=== PATIENT | male | born 1950 | race Caucasian/White ===

== ENCOUNTER 2023-01-10 09:01 | Inpatient (IN) ==
[2023-01-10] MEDS ORDERED: ONDANSETRON 4 MG/2 ML VIAL IV PRN (09:48)
[2023-01-10] MEDS ORDERED: PROMETHAZINE 25 MG/ML VIAL IV PRN (09:53)
[2023-01-10] MEDS ORDERED: PEG 3350/NA SULF,BICARB,CL/KCL 4,000 ML ORAL.SOL PO ONE (09:57)
[2023-01-10] MEDS: 0.9 % SODIUM CHLORIDE 1,000 ML IV SCH (12:55)
[2023-01-10] MEDS: PIPERACILLIN SODIUM/TAZOBACTAM 3.375 GM in DEXTROSE 5% IN WATER 50 ML IV SCH ×2 (12:55→17:21)
[2023-01-10] MEDS: 0.9 % SODIUM CHLORIDE 10 ML SYRINGE IV SCH ×2 (13:33→20:40)
[2023-01-10] MEDS: PANTOPRAZOLE 40 MG VIAL IV SCH (17:09)
[2023-01-10] MEDS ORDERED: ERYTHROMYCIN OPHTH OINT 3.5GM TUBE OU PRN (17:18)
[2023-01-10] MEDS ORDERED: SUMAtriptan SUCCINATE 50 MG TABLET PO PRN (17:18)
[2023-01-10] MEDS ORDERED: metFORMIN 500 MG TABLET PO SCH (17:30)
[2023-01-10] MEDS: metFORMIN 500 MG TABLET PO SCH (17:58)
[2023-01-10] MEDS: POTASSIUM CHLORIDE 20 MEQ TABLET PO SCH (17:59)
[2023-01-10] MEDS: TAMSULOSIN 0.4 MG CAPSULE PO SCH (20:35)
[2023-01-10] MEDS: HYDROcodone/APAP 10/325MG TABLET PO PRN (20:35)
[2023-01-10] MEDS: busPIRone 5 MG TABLET PO SCH (20:35)
[2023-01-10] MEDS: BACLOFEN 10 MG TABLET PO SCH (20:35)
[2023-01-10] MEDS: TRIAMTERENE/HYDROCHLOROTHIAZID 1 CAP CAPSULE PO SCH (20:40)
[2023-01-10] MEDS ORDERED: busPIRone 5 MG TABLET PO SCH (21:00)
[2023-01-11] MEDS: BACLOFEN 10 MG TABLET PO SCH ×6 (00:04→20:04)
[2023-01-11] MEDS: HYDROcodone/APAP 10/325MG TABLET PO PRN ×5 (00:04→20:05)
[2023-01-11] MEDS: PIPERACILLIN SODIUM/TAZOBACTAM 3.375 GM in DEXTROSE 5% IN WATER 50 ML IV SCH ×4 (00:20→17:02)
[2023-01-11] MEDS: 0.9 % SODIUM CHLORIDE 1,000 ML IV SCH ×3 (01:07→11:49)
[2023-01-11] MEDS: 0.9 % SODIUM CHLORIDE 10 ML SYRINGE IV SCH ×3 (04:21→20:04)
[2023-01-11] MEDS: HYDROCODONE/APAP 7.5/325MG TABLET PO PRN (04:28)
[2023-01-11] MEDS: PANTOPRAZOLE 40 MG VIAL IV SCH ×2 (07:15→17:02)
[2023-01-11] MEDS: metFORMIN 500 MG TABLET PO SCH ×2 (07:16→17:03)
[2023-01-11] MEDS: LEVOTHYROXINE 100 MCG VIAL IV SCH (07:16)
[2023-01-11] MEDS: POTASSIUM CHLORIDE 20 MEQ TABLET PO SCH ×2 (07:16→17:04)
[2023-01-11] MEDS: busPIRone 5 MG TABLET PO SCH ×2 (08:11→20:04)
[2023-01-11] MEDS: ENOXAPARIN 40 MG/0.4 ML SYRINGE SQ SCH (08:12)
[2023-01-11] MEDS: TAMSULOSIN 0.4 MG CAPSULE PO SCH ×2 (08:12→20:03)
[2023-01-11] MEDS: GABAPENTIN 300 MG CAPSULE PO SCH (08:12)
[2023-01-11] MEDS: TRIAMTERENE/HYDROCHLOROTHIAZID 1 CAP CAPSULE PO SCH ×2 (08:12→20:03)
[2023-01-11] MEDS ORDERED: PEG 3350/NA SULF,BICARB,CL/KCL 4,000 ML ORAL.SOL PO ONE (09:00)
[2023-01-11 12:55] LABS: Basophils # (Auto) 0.06 K/mcL (0.00-0.30); Basophils % (Auto) 0.7 % (0.0-2.0); Eosinophils # (Auto) 0.56 K/mcL (0.00-0.70); Hematocrit 32.1 % (40.1-51.0); Hemoglobin 9.9 g/dL (13.7-17.5); Lymphocytes # (Auto) 1.14 K/mcL (1.50-4.80); Lymphocytes % (Auto) 14.2 % (15.5-49.0); Mean Cell Volume 82.5 fL (80.0-100.0); Mean Corpuscular HGB Conc 30.8 g/dL (31.0-36.0); Monocytes # (Auto) 0.77 K/mcL (0.10-0.90); Monocytes % (Auto) 9.6 % (1.0-12.0); Neutrophils % (Auto) 68.1 % (38.0-78.0); Platelet Count 396 K/mcL (140-440); RBC 3.89 M/mcL (4.63-6.08)
[2023-01-11] MEDS: MAGNESIUM HYDROXIDE 30 ML ORAL.SUSP PO SCH ×4 (13:43→20:30)
[2023-01-11 16:38] LABS: ALT/SGPT 11 U/L (<40); AST/SGOT 11 U/L (<40); Albumin 2.8 gm/dL (3.2-5.2); Albumin/Globulin Ratio 0.8 (1.0-2.3); Alkaline Phosphatase 103 U/L (39-117); Bilirubin,Direct < 0.2 mg/dL (0-0.3); Bilirubin,Total 0.5 mg/dL (0.1-1.0); Blood Urea Nitrogen 10 mg/dL (8-23); Calcium 8.7 mg/dL (8.6-10.4); Carbon Dioxide 27 mmol/L (22-30); Chloride 97 mmol/L (96-108); Globulin 3.4 gm/dL (2.2-3.7); Glomerular Filtration Rate 99; Glucose 92 mg/dL (70-105); Lactate Dehydrogenase 103 U/L (135-225); Phosphorous 3.5 mg/dL (2.5-4.5); Triglycerides 113 mg/dL (<150); Uric Acid 3.5 mg/dL (2.5-8.0)
[2023-01-12] MEDS: HYDROcodone/APAP 10/325MG TABLET PO PRN ×5 (00:22→23:26)
[2023-01-12] MEDS: BACLOFEN 10 MG TABLET PO SCH ×7 (00:23→23:26)
[2023-01-12] MEDS: PIPERACILLIN SODIUM/TAZOBACTAM 3.375 GM in DEXTROSE 5% IN WATER 50 ML IV SCH ×5 (00:37→23:26)
[2023-01-12] MEDS: 0.9 % SODIUM CHLORIDE 1,000 ML IV SCH ×2 (01:34→21:47)
[2023-01-12] MEDS: HYDROCODONE/APAP 7.5/325MG TABLET PO PRN (05:00)
[2023-01-12] MEDS: 0.9 % SODIUM CHLORIDE 10 ML SYRINGE IV SCH ×3 (05:01→20:05)
[2023-01-12] MEDS ORDERED: FLEETS ADULT ENEMA PR ONE (05:13)
[2023-01-12] MEDS: PANTOPRAZOLE 40 MG VIAL IV SCH ×3 (07:14→17:28)
[2023-01-12] MEDS: LEVOTHYROXINE 100 MCG VIAL IV SCH ×2 (07:14→09:07)
[2023-01-12] MEDS ORDERED: KETAMINE 50 MG/ML Syringe IV ONE (08:04)
[2023-01-12] MEDS ORDERED: fentaNYL 100 MCG/2 ML VIAL IV ONE (08:04)
[2023-01-12] MEDS ORDERED: SUGAMMADEX SODIUM 200 MG/2 ML VIAL IV ONE (08:05)
[2023-01-12] MEDS ORDERED: ROCURONIUM 10 MG/ML ML IV ONE (08:05)
[2023-01-12] MEDS ORDERED: MAGNESIUM SULFATE 0 GM/0 ML BAG IV ONE (08:05)
[2023-01-12] MEDS ORDERED: PROPOFOL 200 MG/20 ML VIAL IV ONE (08:05)
[2023-01-12] MEDS ORDERED: LIDOCAINE 2% PF 5 ML VIAL ONE (08:05)
[2023-01-12] MEDS ORDERED: ONDANSETRON 4 MG/2 ML VIAL ONE (08:05)
[2023-01-12] MEDS ORDERED: DEXAMETHASONE 10 MG/ML VIAL ONE (08:05)
[2023-01-12] MEDS ORDERED: SCOPOLAMINE 1 PATCH PATCH TOPICAL PRN (09:00)
[2023-01-12] MEDS ORDERED: IPRATROPIUM/ALBUTEROL 3 ML AMPUL.NEB NEB PRN (09:00)
[2023-01-12] MEDS: POTASSIUM CHLORIDE 20 MEQ TABLET PO SCH ×2 (09:07→17:28)
[2023-01-12] MEDS: metFORMIN 500 MG TABLET PO SCH ×2 (09:07→17:28)
[2023-01-12] MEDS: busPIRone 5 MG TABLET PO SCH ×2 (11:21→20:05)
[2023-01-12] MEDS: ENOXAPARIN 40 MG/0.4 ML SYRINGE SQ SCH (11:21)
[2023-01-12] MEDS: TAMSULOSIN 0.4 MG CAPSULE PO SCH ×2 (11:21→20:05)
[2023-01-12] MEDS: TRIAMTERENE/HYDROCHLOROTHIAZID 1 CAP CAPSULE PO SCH ×2 (11:22→20:05)
[2023-01-12] MEDS: GABAPENTIN 300 MG CAPSULE PO SCH (11:22)
[2023-01-13] MEDS: 0.9 % SODIUM CHLORIDE 10 ML SYRINGE IV SCH ×3 (04:10→21:27)
[2023-01-13] MEDS: HYDROcodone/APAP 10/325MG TABLET PO PRN ×5 (04:28→21:23)
[2023-01-13] MEDS: BACLOFEN 10 MG TABLET PO SCH ×5 (04:28→21:23)
[2023-01-13] MEDS: PIPERACILLIN SODIUM/TAZOBACTAM 3.375 GM in DEXTROSE 5% IN WATER 50 ML IV SCH ×3 (05:53→17:34)
[2023-01-13] MEDS: 0.9 % SODIUM CHLORIDE 1,000 ML IV SCH ×2 (05:54→21:21)
[2023-01-13] MEDS: PANTOPRAZOLE 40 MG VIAL IV SCH ×2 (07:48→17:35)
[2023-01-13] MEDS: LEVOTHYROXINE 100 MCG VIAL IV SCH (07:48)
[2023-01-13] MEDS: metFORMIN 500 MG TABLET PO SCH ×2 (07:49→17:35)
[2023-01-13] MEDS: POTASSIUM CHLORIDE 20 MEQ TABLET PO SCH ×2 (07:49→17:35)
[2023-01-13] MEDS: busPIRone 5 MG TABLET PO SCH ×2 (08:53→21:23)
[2023-01-13] MEDS: ENOXAPARIN 40 MG/0.4 ML SYRINGE SQ SCH (08:53)
[2023-01-13] MEDS: GABAPENTIN 300 MG CAPSULE PO SCH (08:53)
[2023-01-13] MEDS: TRIAMTERENE/HYDROCHLOROTHIAZID 1 CAP CAPSULE PO SCH ×2 (08:53→21:23)
[2023-01-13] MEDS: TAMSULOSIN 0.4 MG CAPSULE PO SCH ×2 (08:53→21:23)
[2023-01-14] MEDS: PIPERACILLIN SODIUM/TAZOBACTAM 3.375 GM in DEXTROSE 5% IN WATER 50 ML IV SCH ×5 (00:55→23:48)
[2023-01-14] MEDS: BACLOFEN 10 MG TABLET PO SCH ×7 (00:55→22:23)
[2023-01-14] MEDS: HYDROCODONE/APAP 7.5/325MG TABLET PO PRN (03:44)
[2023-01-14] MEDS: 0.9 % SODIUM CHLORIDE 1,000 ML IV SCH ×4 (04:03→21:20)
[2023-01-14] MEDS: 0.9 % SODIUM CHLORIDE 10 ML SYRINGE IV SCH ×3 (04:30→21:30)
[2023-01-14] MEDS ORDERED: PROPOFOL 200 MG/20 ML VIAL IV ONE ×2 (07:20→08:13)
[2023-01-14] MEDS ORDERED: LIDOCAINE 2% PF 5 ML VIAL ONE (07:20)
[2023-01-14] MEDS ORDERED: ROCURONIUM 10 MG/ML ML IV ONE ×2 (07:21→09:29)
[2023-01-14] MEDS ORDERED: fentaNYL 100 MCG/2 ML VIAL IV ONE (07:38)
[2023-01-14] MEDS ORDERED: PHENYLEPHRINE 10 MG/ML VIAL ONE (08:12)
[2023-01-14] MEDS ORDERED: IPRATROPIUM/ALBUTEROL 3 ML AMPUL.NEB NEB PRN (08:16)
[2023-01-14] MEDS ORDERED: NALOXONE HCL 0.4 MG/ML VIAL IV PRN (09:51)
[2023-01-14] MEDS ORDERED: ePHEDrine 50 MG/ML AMPUL IV PRN (09:51)
[2023-01-14] MEDS ORDERED: ACETAMINOPHEN 1,000 MG/100 ML BAG IV ONE (09:51)
[2023-01-14] MEDS ORDERED: LACTATED RINGERS 250 ML IV PRN (09:51)
[2023-01-14] MEDS ORDERED: fentaNYL 100 MCG/2 ML VIAL IV PRN (09:51)
[2023-01-14] MEDS ORDERED: ONDANSETRON 4 MG/2 ML VIAL IV PRN (09:51)
[2023-01-14] MEDS ORDERED: ATROPINE SULFATE 0.4 MG/ML VIAL IV PRN (09:51)
[2023-01-14] MEDS ORDERED: SUGAMMADEX SODIUM 200 MG/2 ML VIAL IV ONE (09:58)
[2023-01-14] MEDS: PANTOPRAZOLE 40 MG VIAL IV SCH ×2 (14:01→17:44)
[2023-01-14] MEDS: LEVOTHYROXINE 100 MCG VIAL IV SCH (14:01)
[2023-01-14] MEDS: POTASSIUM CHLORIDE 20 MEQ TABLET PO SCH ×2 (14:02→17:45)
[2023-01-14] MEDS: metFORMIN 500 MG TABLET PO SCH ×2 (14:02→17:46)
[2023-01-14] MEDS: TAMSULOSIN 0.4 MG CAPSULE PO SCH ×2 (14:03→21:24)
[2023-01-14] MEDS: busPIRone 5 MG TABLET PO SCH ×2 (14:03→21:24)
[2023-01-14] MEDS: TRIAMTERENE/HYDROCHLOROTHIAZID 1 CAP CAPSULE PO SCH ×2 (14:04→21:24)
[2023-01-14] MEDS: GABAPENTIN 300 MG CAPSULE PO SCH (14:04)
[2023-01-14] MEDS: METOCLOPRAMIDE 10 MG/2 ML VIAL IV SCH ×3 (14:14→23:48)
[2023-01-14] MEDS: ENOXAPARIN 40 MG/0.4 ML SYRINGE SQ SCH (14:14)
[2023-01-14] MEDS: HYDROmorphone 1 MG/ML SYRINGE IV PRN (16:01)
[2023-01-14] MEDS: HYDROcodone/APAP 10/325MG TABLET PO PRN ×3 (17:45→22:23)
[2023-01-15] MEDS: BACLOFEN 10 MG TABLET PO SCH ×6 (03:42→23:58)
[2023-01-15] MEDS: HYDROCODONE/APAP 7.5/325MG TABLET PO PRN (03:43)
[2023-01-15] MEDS: HYDROmorphone 1 MG/ML SYRINGE IV PRN ×2 (04:50→10:21)
[2023-01-15] MEDS: METOCLOPRAMIDE 10 MG/2 ML VIAL IV SCH ×3 (05:50→18:34)
[2023-01-15] MEDS: PIPERACILLIN SODIUM/TAZOBACTAM 3.375 GM in DEXTROSE 5% IN WATER 50 ML IV SCH ×3 (05:50→17:22)
[2023-01-15] MEDS: 0.9 % SODIUM CHLORIDE 10 ML SYRINGE IV SCH ×4 (05:50→20:25)
[2023-01-15] MEDS: PANTOPRAZOLE 40 MG VIAL IV SCH ×2 (08:00→17:22)
[2023-01-15] MEDS: HYDROcodone/APAP 10/325MG TABLET PO PRN ×4 (08:00→20:24)
[2023-01-15] MEDS: LEVOTHYROXINE 100 MCG VIAL IV SCH (08:00)
[2023-01-15] MEDS: metFORMIN 500 MG TABLET PO SCH ×2 (09:32→17:22)
[2023-01-15] MEDS: POTASSIUM CHLORIDE 20 MEQ TABLET PO SCH ×2 (09:32→17:22)
[2023-01-15] MEDS: busPIRone 5 MG TABLET PO SCH ×2 (09:33→20:25)
[2023-01-15] MEDS: TAMSULOSIN 0.4 MG CAPSULE PO SCH ×2 (09:33→20:25)
[2023-01-15] MEDS: GABAPENTIN 300 MG CAPSULE PO SCH (09:33)
[2023-01-15] MEDS: ENOXAPARIN 40 MG/0.4 ML SYRINGE SQ SCH (09:34)
[2023-01-15] MEDS: TRIAMTERENE/HYDROCHLOROTHIAZID 1 CAP CAPSULE PO SCH ×2 (09:34→20:26)
[2023-01-15] MEDS: 0.9 % SODIUM CHLORIDE 1,000 ML IV SCH (11:39)
[2023-01-16] MEDS: PIPERACILLIN SODIUM/TAZOBACTAM 3.375 GM in DEXTROSE 5% IN WATER 50 ML IV SCH ×5 (00:03→23:50)
[2023-01-16] MEDS: METOCLOPRAMIDE 10 MG/2 ML VIAL IV SCH ×5 (00:03→23:50)
[2023-01-16] MEDS: 0.9 % SODIUM CHLORIDE 1,000 ML IV SCH ×3 (02:29→18:52)
[2023-01-16] MEDS: BACLOFEN 10 MG TABLET PO SCH ×6 (03:33→23:00)
[2023-01-16] MEDS: HYDROCODONE/APAP 7.5/325MG TABLET PO PRN (03:33)
[2023-01-16] MEDS: HYDROmorphone 1 MG/ML SYRINGE IV PRN (04:22)
[2023-01-16] MEDS: 0.9 % SODIUM CHLORIDE 10 ML SYRINGE IV SCH ×3 (06:26→23:00)
[2023-01-16] MEDS: LEVOTHYROXINE 100 MCG VIAL IV SCH (08:02)
[2023-01-16] MEDS: PANTOPRAZOLE 40 MG VIAL IV SCH ×2 (08:02→17:21)
[2023-01-16] MEDS: ENOXAPARIN 40 MG/0.4 ML SYRINGE SQ SCH (08:02)
[2023-01-16] MEDS: HYDROcodone/APAP 10/325MG TABLET PO PRN (08:03)
[2023-01-16] MEDS: POTASSIUM CHLORIDE 20 MEQ TABLET PO SCH ×2 (08:35→17:21)
[2023-01-16] MEDS: metFORMIN 500 MG TABLET PO SCH ×2 (08:36→17:25)
[2023-01-16] MEDS: TAMSULOSIN 0.4 MG CAPSULE PO SCH ×2 (08:36→20:19)
[2023-01-16] MEDS: busPIRone 5 MG TABLET PO SCH ×2 (08:37→20:20)
[2023-01-16] MEDS: GABAPENTIN 300 MG CAPSULE PO SCH (08:38)
[2023-01-16] MEDS: TRIAMTERENE/HYDROCHLOROTHIAZID 1 CAP CAPSULE PO SCH ×2 (08:39→20:21)
[2023-01-16 09:23] LABS: ALT/SGPT 8 U/L (<40); AST/SGOT 9 U/L (<40); Albumin 2.6 gm/dL (3.2-5.2); Alkaline Phosphatase 78 U/L (39-117); Bilirubin,Direct < 0.2 mg/dL (0-0.3); Bilirubin,Total 0.3 mg/dL (0.1-1.0); Blood Urea Nitrogen 5 mg/dL (8-23); Calcium 7.9 mg/dL (8.6-10.4); Carbon Dioxide 24 mmol/L (22-30); Chloride 101 mmol/L (96-108); Globulin 2.7 gm/dL (2.2-3.7); Glomerular Filtration Rate 107; Glucose 86 mg/dL (70-105); Lactate Dehydrogenase 167 U/L (135-225); Phosphorous 2.5 mg/dL (2.5-4.5); Triglycerides 98 mg/dL (<150)
[2023-01-16] MEDS: oxyCODONE IR 5 MG TABLET PO SCH ×5 (12:22→23:00)
[2023-01-16 13:34] LABS: Basophils # (Auto) 0.08 K/mcL (0.00-0.30); Basophils % (Auto) 0.8 % (0.0-2.0); Eosinophils # (Auto) 0.44 K/mcL (0.00-0.70); Eosinophils % (Auto) 4.1 % (0.0-7.0); Hematocrit 30.6 % (40.1-51.0); Hemoglobin 9.4 g/dL (13.7-17.5); Lymphocytes # (Auto) 1.28 K/mcL (1.50-4.80); Lymphocytes % (Auto) 12.1 % (15.5-49.0); Mean Cell Volume 83.8 fL (80.0-100.0); Mean Corpuscular HGB Conc 30.7 g/dL (31.0-36.0); Mean Platelet Volume 8.9 fL (8.8-12.5); Monocytes # (Auto) 0.79 K/mcL (0.10-0.90); Monocytes % (Auto) 7.4 % (1.0-12.0); Neutrophils % (Auto) 74.6 % (38.0-78.0); Platelet Count 441 K/mcL (140-440); RBC 3.65 M/mcL (4.63-6.08); Red Cell Distribution Width 17.6 % (11.5-14.5); WBC 10.6 K/mcL (4.5-11.0)
[2023-01-16] MEDS: ACETAMINOPHEN 1,000 MG/100 ML BAG IV SCH ×2 (14:43→22:56)
[2023-01-17] MEDS: HYDROmorphone 1 MG/ML SYRINGE IV PRN ×2 (00:45→11:05)
[2023-01-17] MEDS: 0.9 % SODIUM CHLORIDE 1,000 ML IV SCH ×4 (04:15→23:04)
[2023-01-17] MEDS: BACLOFEN 10 MG TABLET PO SCH ×6 (04:16→23:03)
[2023-01-17] MEDS: oxyCODONE IR 5 MG TABLET PO SCH ×8 (04:16→23:02)
[2023-01-17] MEDS: PIPERACILLIN SODIUM/TAZOBACTAM 3.375 GM in DEXTROSE 5% IN WATER 50 ML IV SCH ×4 (05:17→23:04)
[2023-01-17] MEDS: METOCLOPRAMIDE 10 MG/2 ML VIAL IV SCH ×4 (05:17→23:02)
[2023-01-17] MEDS: ACETAMINOPHEN 1,000 MG/100 ML BAG IV SCH ×3 (06:02→23:03)
[2023-01-17] MEDS: 0.9 % SODIUM CHLORIDE 10 ML SYRINGE IV SCH ×3 (06:14→23:03)
[2023-01-17] MEDS: GABAPENTIN 300 MG CAPSULE PO SCH (07:57)
[2023-01-17] MEDS: metFORMIN 500 MG TABLET PO SCH ×2 (07:57→17:50)
[2023-01-17] MEDS: POTASSIUM CHLORIDE 20 MEQ TABLET PO SCH ×2 (07:57→17:50)
[2023-01-17] MEDS: busPIRone 5 MG TABLET PO SCH ×2 (07:59→20:09)
[2023-01-17] MEDS: TAMSULOSIN 0.4 MG CAPSULE PO SCH ×2 (07:59→20:09)
[2023-01-17] MEDS: ENOXAPARIN 40 MG/0.4 ML SYRINGE SQ SCH (08:08)
[2023-01-17] MEDS: PANTOPRAZOLE 40 MG VIAL IV SCH ×2 (08:11→17:48)
[2023-01-17] MEDS: LEVOTHYROXINE 100 MCG VIAL IV SCH (08:15)
[2023-01-17] MEDS: TRIAMTERENE/HYDROCHLOROTHIAZID 1 CAP CAPSULE PO SCH ×2 (10:25→20:09)
[2023-01-17 10:59] LABS: ALT/SGPT 7 U/L (<40); AST/SGOT 8 U/L (<40); Albumin 2.7 gm/dL (3.2-5.2); Alkaline Phosphatase 83 U/L (39-117); Bilirubin,Direct < 0.2 mg/dL (0-0.3); Bilirubin,Total 0.4 mg/dL (0.1-1.0); Blood Urea Nitrogen 6 mg/dL (8-23); Calcium 8.5 mg/dL (8.6-10.4); Carbon Dioxide 22 mmol/L (22-30); Chloride 100 mmol/L (96-108); Globulin 2.8 gm/dL (2.2-3.7); Glomerular Filtration Rate 99; Glucose 94 mg/dL (70-105); Lactate Dehydrogenase 148 U/L (135-225); Phosphorous 2.6 mg/dL (2.5-4.5); Triglycerides 107 mg/dL (<150); Uric Acid 2.5 mg/dL (2.5-8.0)
[2023-01-18] MEDS: HYDROmorphone 1 MG/ML SYRINGE IV PRN (03:21)
[2023-01-18] MEDS: oxyCODONE IR 5 MG TABLET PO SCH ×8 (03:21→23:53)
[2023-01-18] MEDS: BACLOFEN 10 MG TABLET PO SCH ×6 (03:21→23:53)
[2023-01-18] MEDS: 0.9 % SODIUM CHLORIDE 1,000 ML IV SCH ×3 (04:04→18:04)
[2023-01-18] MEDS: PIPERACILLIN SODIUM/TAZOBACTAM 3.375 GM in DEXTROSE 5% IN WATER 50 ML IV SCH ×4 (05:08→23:53)
[2023-01-18] MEDS: 0.9 % SODIUM CHLORIDE 10 ML SYRINGE IV SCH ×3 (05:08→21:43)
[2023-01-18] MEDS: METOCLOPRAMIDE 10 MG/2 ML VIAL IV SCH ×4 (05:08→23:53)
[2023-01-18] MEDS: ACETAMINOPHEN 1,000 MG/100 ML BAG IV SCH ×3 (05:45→21:40)
[2023-01-18 06:45] LABS: Basophils # (Auto) 0.05 K/mcL (0.00-0.30); Basophils % (Auto) 0.5 % (0.0-2.0); Eosinophils # (Auto) 0.36 K/mcL (0.00-0.70); Eosinophils % (Auto) 3.7 % (0.0-7.0); Hematocrit 34.7 % (40.1-51.0); Hemoglobin 9.7 g/dL (13.7-17.5); Lymphocytes # (Auto) 1.01 K/mcL (1.50-4.80); Lymphocytes % (Auto) 10.3 % (15.5-49.0); Mean Cell Volume 91.6 fL (80.0-100.0); Mean Platelet Volume 8.8 fL (8.8-12.5); Monocytes # (Auto) 0.84 K/mcL (0.10-0.90); Monocytes % (Auto) 8.6 % (1.0-12.0); Neutrophils % (Auto) 76.1 % (38.0-78.0); Platelet Count 469 K/mcL (140-440); RBC 3.79 M/mcL (4.63-6.08); Red Cell Distribution Width 18.1 % (11.5-14.5); WBC 9.8 K/mcL (4.5-11.0)
[2023-01-18 06:59] LABS: ALT/SGPT 7 U/L (<40); AST/SGOT 10 U/L (<40); Albumin 2.3 gm/dL (3.2-5.2); Albumin/Globulin Ratio 0.7 (1.0-2.3); Alkaline Phosphatase 89 U/L (39-117); Bilirubin,Direct < 0.2 mg/dL (0-0.3); Bilirubin,Total 0.4 mg/dL (0.1-1.0); Blood Urea Nitrogen 7 mg/dL (8-23); Calcium 8.2 mg/dL (8.6-10.4); Carbon Dioxide 20 mmol/L (22-30); Chloride 98 mmol/L (96-108); Globulin 3.3 gm/dL (2.2-3.7); Glomerular Filtration Rate 107; Glucose 88 mg/dL (70-105); Lactate Dehydrogenase 150 U/L (135-225); Phosphorous 2.9 mg/dL (2.5-4.5); Triglycerides 114 mg/dL (<150); Uric Acid 2.2 mg/dL (2.5-8.0)
[2023-01-18] MEDS: PANTOPRAZOLE 40 MG VIAL IV SCH ×2 (08:16→17:20)
[2023-01-18] MEDS: LEVOTHYROXINE 100 MCG VIAL IV SCH (08:16)
[2023-01-18] MEDS: ENOXAPARIN 40 MG/0.4 ML SYRINGE SQ SCH (08:16)
[2023-01-18] MEDS: POTASSIUM CHLORIDE 20 MEQ TABLET PO SCH ×2 (08:17→17:20)
[2023-01-18] MEDS: metFORMIN 500 MG TABLET PO SCH ×2 (08:17→17:21)
[2023-01-18] MEDS: busPIRone 5 MG TABLET PO SCH ×2 (08:17→21:37)
[2023-01-18] MEDS: GABAPENTIN 300 MG CAPSULE PO SCH (08:17)
[2023-01-18] MEDS: TRIAMTERENE/HYDROCHLOROTHIAZID 1 CAP CAPSULE PO SCH ×2 (08:17→21:38)
[2023-01-18] MEDS: TAMSULOSIN 0.4 MG CAPSULE PO SCH ×2 (08:17→21:38)
[2023-01-19] MEDS: BACLOFEN 10 MG TABLET PO SCH ×5 (03:37→21:16)
[2023-01-19] MEDS: oxyCODONE IR 5 MG TABLET PO SCH ×8 (03:37→21:16)
[2023-01-19] MEDS: 0.9 % SODIUM CHLORIDE 10 ML SYRINGE IV SCH ×4 (05:09→21:17)
[2023-01-19] MEDS: ACETAMINOPHEN 1,000 MG/100 ML BAG IV SCH ×3 (05:38→21:18)
[2023-01-19] MEDS: METOCLOPRAMIDE 10 MG/2 ML VIAL IV SCH ×4 (05:46→23:27)
[2023-01-19] MEDS: PIPERACILLIN SODIUM/TAZOBACTAM 3.375 GM in DEXTROSE 5% IN WATER 50 ML IV SCH ×4 (06:40→23:27)
[2023-01-19 06:48] LABS: ALT/SGPT 8 U/L (<40); AST/SGOT 10 U/L (<40); Albumin/Globulin Ratio 0.6 (1.0-2.3); Alkaline Phosphatase 89 U/L (39-117); Bilirubin,Direct < 0.2 mg/dL (0-0.3); Bilirubin,Total 0.3 mg/dL (0.1-1.0); Blood Urea Nitrogen 7 mg/dL (8-23); Calcium 8.1 mg/dL (8.6-10.4); Carbon Dioxide 24 mmol/L (22-30); Chloride 103 mmol/L (96-108); Globulin 3.4 gm/dL (2.2-3.7); Glomerular Filtration Rate 107; Glucose 87 mg/dL (70-105); Lactate Dehydrogenase 132 U/L (135-225); Phosphorous 3.2 mg/dL (2.5-4.5); Triglycerides 97 mg/dL (<150); Uric Acid 2.8 mg/dL (2.5-8.0)
[2023-01-19] MEDS: 0.9 % SODIUM CHLORIDE 1,000 ML IV SCH ×3 (07:26→21:18)
[2023-01-19] MEDS: LEVOTHYROXINE 100 MCG VIAL IV SCH (07:42)
[2023-01-19] MEDS: PANTOPRAZOLE 40 MG VIAL IV SCH ×2 (07:42→17:11)
[2023-01-19] MEDS: GABAPENTIN 300 MG CAPSULE PO SCH (08:28)
[2023-01-19] MEDS: busPIRone 5 MG TABLET PO SCH ×2 (08:28→21:16)
[2023-01-19] MEDS: ENOXAPARIN 40 MG/0.4 ML SYRINGE SQ SCH (08:28)
[2023-01-19] MEDS: POTASSIUM CHLORIDE 20 MEQ TABLET PO SCH ×2 (08:28→17:11)
[2023-01-19] MEDS: TRIAMTERENE/HYDROCHLOROTHIAZID 1 CAP CAPSULE PO SCH ×2 (08:28→21:17)
[2023-01-19] MEDS: TAMSULOSIN 0.4 MG CAPSULE PO SCH ×2 (08:28→21:16)
[2023-01-19] MEDS: metFORMIN 500 MG TABLET PO SCH ×2 (08:29→17:11)
[2023-01-19] MEDS ORDERED: 0.9 % SODIUM CHLORIDE 10 ML SYRINGE IV PRN (12:41)
[2023-01-19] MEDS: HYDROmorphone 1 MG/ML SYRINGE IV PRN (17:11)
[2023-01-19] MEDS: METHOCARBAMOL 1,000 MG/10 ML VIAL IV PRN (21:17)
[2023-01-20] MEDS: oxyCODONE IR 5 MG TABLET PO SCH ×9 (00:34→23:54)
[2023-01-20] MEDS: BACLOFEN 10 MG TABLET PO SCH ×7 (00:34→23:54)
[2023-01-20] MEDS: HYDROmorphone 1 MG/ML SYRINGE IV PRN ×2 (03:00→23:53)
[2023-01-20] MEDS: ACETAMINOPHEN 1,000 MG/100 ML BAG IV SCH ×3 (05:22→22:16)
[2023-01-20] MEDS: METOCLOPRAMIDE 10 MG/2 ML VIAL IV SCH ×4 (05:22→23:53)
[2023-01-20] MEDS: 0.9 % SODIUM CHLORIDE 10 ML SYRINGE IV SCH ×5 (05:27→20:22)
[2023-01-20] MEDS: PIPERACILLIN SODIUM/TAZOBACTAM 3.375 GM in DEXTROSE 5% IN WATER 50 ML IV SCH ×4 (05:59→23:53)
[2023-01-20] MEDS: PANTOPRAZOLE 40 MG VIAL IV SCH ×2 (07:15→17:53)
[2023-01-20] MEDS: LEVOTHYROXINE 100 MCG VIAL IV SCH (07:15)
[2023-01-20] MEDS: metFORMIN 500 MG TABLET PO SCH (07:16)
[2023-01-20] MEDS: POTASSIUM CHLORIDE 20 MEQ TABLET PO SCH ×2 (07:16→17:53)
[2023-01-20] MEDS: busPIRone 5 MG TABLET PO SCH ×2 (08:26→20:21)
[2023-01-20] MEDS: GABAPENTIN 300 MG CAPSULE PO SCH (08:26)
[2023-01-20] MEDS: ENOXAPARIN 40 MG/0.4 ML SYRINGE SQ SCH (08:26)
[2023-01-20] MEDS: TAMSULOSIN 0.4 MG CAPSULE PO SCH ×2 (08:26→20:21)
[2023-01-20] MEDS: TRIAMTERENE/HYDROCHLOROTHIAZID 1 CAP CAPSULE PO SCH ×2 (08:42→20:20)
[2023-01-20] MEDS: 0.9 % SODIUM CHLORIDE 1,000 ML IV SCH ×2 (09:12→15:35)
[2023-01-20] MEDS ORDERED: PANTOPRAZOLE 40 MG VIAL IV ONE (17:47)
[2023-01-20] MEDS: METHOCARBAMOL 1,000 MG/10 ML VIAL IV PRN (20:21)
[2023-01-21] MEDS: 0.9 % SODIUM CHLORIDE 1,000 ML IV SCH ×3 (01:32→12:47)
[2023-01-21] MEDS: BACLOFEN 10 MG TABLET PO SCH ×6 (03:37→23:44)
[2023-01-21] MEDS: oxyCODONE IR 5 MG TABLET PO SCH ×8 (03:37→23:43)
[2023-01-21] MEDS: METOCLOPRAMIDE 10 MG/2 ML VIAL IV SCH ×4 (05:21→23:39)
[2023-01-21] MEDS: ACETAMINOPHEN 1,000 MG/100 ML BAG IV SCH ×3 (05:21→21:08)
[2023-01-21] MEDS: 0.9 % SODIUM CHLORIDE 10 ML SYRINGE IV SCH ×5 (05:29→21:18)
[2023-01-21] MEDS: PIPERACILLIN SODIUM/TAZOBACTAM 3.375 GM in DEXTROSE 5% IN WATER 50 ML IV SCH ×4 (06:07→23:39)
[2023-01-21] MEDS: POTASSIUM CHLORIDE 20 MEQ TABLET PO SCH ×2 (07:57→17:28)
[2023-01-21] MEDS: PANTOPRAZOLE 40 MG VIAL IV SCH ×2 (07:58→17:28)
[2023-01-21] MEDS: LEVOTHYROXINE 100 MCG VIAL IV SCH (07:58)
[2023-01-21] MEDS: GABAPENTIN 300 MG CAPSULE PO SCH (09:54)
[2023-01-21] MEDS: TRIAMTERENE/HYDROCHLOROTHIAZID 1 CAP CAPSULE PO SCH ×2 (09:57→21:14)
[2023-01-21] MEDS: busPIRone 5 MG TABLET PO SCH ×2 (09:57→21:12)
[2023-01-21] MEDS: TAMSULOSIN 0.4 MG CAPSULE PO SCH ×2 (09:57→21:12)
[2023-01-21] MEDS: ENOXAPARIN 40 MG/0.4 ML SYRINGE SQ SCH (09:58)
[2023-01-21] MEDS: METHOCARBAMOL 1,000 MG/10 ML VIAL IV PRN (22:40)
[2023-01-22] MEDS: 0.9 % SODIUM CHLORIDE 1,000 ML IV SCH ×2 (02:54→15:30)
[2023-01-22] MEDS: oxyCODONE IR 5 MG TABLET PO SCH ×7 (03:10→20:33)
[2023-01-22] MEDS: BACLOFEN 10 MG TABLET PO SCH ×6 (03:15→22:13)
[2023-01-22] MEDS: ACETAMINOPHEN 1,000 MG/100 ML BAG IV SCH ×3 (05:23→22:10)
[2023-01-22] MEDS: 0.9 % SODIUM CHLORIDE 10 ML SYRINGE IV SCH ×5 (05:23→22:13)
[2023-01-22] MEDS: METOCLOPRAMIDE 10 MG/2 ML VIAL IV SCH ×2 (05:25→12:43)
[2023-01-22] MEDS: PIPERACILLIN SODIUM/TAZOBACTAM 3.375 GM in DEXTROSE 5% IN WATER 50 ML IV SCH ×3 (06:13→17:39)
[2023-01-22] MEDS: LEVOTHYROXINE 100 MCG VIAL IV SCH (07:44)
[2023-01-22] MEDS: PANTOPRAZOLE 40 MG VIAL IV SCH (07:45)
[2023-01-22] MEDS: POTASSIUM CHLORIDE 20 MEQ TABLET PO SCH ×2 (07:45→17:42)
[2023-01-22] MEDS: ENOXAPARIN 40 MG/0.4 ML SYRINGE SQ SCH (08:05)
[2023-01-22] MEDS: HYDROmorphone 1 MG/ML SYRINGE IV PRN ×2 (08:06→23:14)
[2023-01-22] MEDS: GABAPENTIN 300 MG CAPSULE PO SCH (08:09)
[2023-01-22] MEDS: TAMSULOSIN 0.4 MG CAPSULE PO SCH ×2 (08:09→20:33)
[2023-01-22] MEDS: busPIRone 5 MG TABLET PO SCH ×2 (08:09→20:33)
[2023-01-22] MEDS: TRIAMTERENE/HYDROCHLOROTHIAZID 1 CAP CAPSULE PO SCH ×2 (08:14→20:33)
[2023-01-22] MEDS: PANTOPRAZOLE 40 MG TABLET PO SCH (17:39)
[2023-01-22] MEDS: METOCLOPRAMIDE 10 MG TABLET PO SCH ×2 (17:40→22:13)
[2023-01-22] MEDS: METHOCARBAMOL 1,000 MG/10 ML VIAL IV PRN (22:10)
[2023-01-23] MEDS: PIPERACILLIN SODIUM/TAZOBACTAM 3.375 GM in DEXTROSE 5% IN WATER 50 ML IV SCH ×4 (00:05→17:52)
[2023-01-23] MEDS: oxyCODONE IR 5 MG TABLET PO SCH ×8 (00:05→21:56)
[2023-01-23] MEDS: HYDROmorphone 1 MG/ML SYRINGE IV PRN ×2 (03:50→19:41)
[2023-01-23] MEDS: BACLOFEN 10 MG TABLET PO SCH ×6 (03:50→21:56)
[2023-01-23] MEDS: METOCLOPRAMIDE 10 MG TABLET PO SCH ×4 (04:52→21:56)
[2023-01-23] MEDS: ACETAMINOPHEN 1,000 MG/100 ML BAG IV SCH ×3 (05:40→22:10)
[2023-01-23] MEDS: 0.9 % SODIUM CHLORIDE 10 ML SYRINGE IV SCH ×5 (05:58→21:55)
[2023-01-23] MEDS ORDERED: LEVOTHYROXINE 100 MCG TABLET PO SCH (07:30)
[2023-01-23] MEDS: LEVOTHYROXINE 100 MCG TABLET PO SCH (08:01)
[2023-01-23] MEDS: PANTOPRAZOLE 40 MG TABLET PO SCH ×2 (08:02→17:52)
[2023-01-23] MEDS: GABAPENTIN 300 MG CAPSULE PO SCH (10:15)
[2023-01-23] MEDS: busPIRone 5 MG TABLET PO SCH ×2 (10:15→19:45)
[2023-01-23] MEDS: SULFAMETHOXAZOLE/TRIMETHOPRIM 1 TABLET PO SCH ×2 (10:15→19:45)
[2023-01-23] MEDS: GENTAMICIN SULFATE IRR SCH ×2 (10:16→19:43)
[2023-01-23] MEDS: TAMSULOSIN 0.4 MG CAPSULE PO SCH ×2 (10:16→19:45)
[2023-01-23] MEDS: SODIUM CHLORIDE IRRIG IRR SCH ×2 (10:16→19:43)
[2023-01-23] MEDS: CLINDAMYCIN IRR SCH ×2 (10:16→19:43)
[2023-01-23] MEDS: ENOXAPARIN 40 MG/0.4 ML SYRINGE SQ SCH (10:16)
[2023-01-23] MEDS: 0.9 % SODIUM CHLORIDE 1,000 ML IV SCH ×3 (10:17→18:04)
[2023-01-23] MEDS: TRIAMTERENE/HYDROCHLOROTHIAZID 1 CAP CAPSULE PO SCH ×2 (13:11→19:51)
[2023-01-23] MEDS: METHOCARBAMOL 1,000 MG/10 ML VIAL IV PRN (22:06)
[2023-01-24] MEDS: PIPERACILLIN SODIUM/TAZOBACTAM 3.375 GM in DEXTROSE 5% IN WATER 50 ML IV SCH ×5 (00:31→23:24)
[2023-01-24] MEDS: oxyCODONE IR 5 MG TABLET PO SCH ×9 (00:45→23:22)
[2023-01-24] MEDS: METOCLOPRAMIDE 10 MG TABLET PO SCH ×4 (04:54→23:23)
[2023-01-24] MEDS: BACLOFEN 10 MG TABLET PO SCH ×6 (04:54→23:23)
[2023-01-24] MEDS: ACETAMINOPHEN 1,000 MG/100 ML BAG IV SCH ×3 (05:03→21:27)
[2023-01-24] MEDS: 0.9 % SODIUM CHLORIDE 10 ML SYRINGE IV SCH ×4 (05:04→22:26)
[2023-01-24 06:40] LABS: Hemoglobin 8.3 g/dL (13.7-17.5); Mean Cell Volume 85.4 fL (80.0-100.0); Mean Corpuscular HGB Conc 29.6 g/dL (31.0-36.0); Mean Platelet Volume 8.7 fL (8.8-12.5); Platelet Count 431 K/mcL (140-440); RBC 3.28 M/mcL (4.63-6.08); Red Cell Distribution Width 18.4 % (11.5-14.5)
[2023-01-24 07:10] LABS: Blood Urea Nitrogen 18 mg/dL (8-23); Calcium 8.3 mg/dL (8.6-10.4); Carbon Dioxide 22 mmol/L (22-30); Chloride 100 mmol/L (96-108); Glomerular Filtration Rate 99; Glucose 100 mg/dL (70-105)
[2023-01-24] MEDS: LEVOTHYROXINE 100 MCG TABLET PO SCH (08:09)
[2023-01-24] MEDS: PANTOPRAZOLE 40 MG TABLET PO SCH ×2 (08:09→17:47)
[2023-01-24] MEDS: SULFAMETHOXAZOLE/TRIMETHOPRIM 1 TABLET PO SCH ×2 (08:09→20:06)
[2023-01-24] MEDS: GABAPENTIN 300 MG CAPSULE PO SCH (08:09)
[2023-01-24] MEDS: busPIRone 5 MG TABLET PO SCH ×2 (08:10→20:06)
[2023-01-24] MEDS: TAMSULOSIN 0.4 MG CAPSULE PO SCH ×2 (08:10→20:06)
[2023-01-24] MEDS: 0.9 % SODIUM CHLORIDE 1,000 ML IV SCH ×2 (08:11→21:27)
[2023-01-24] MEDS: ENOXAPARIN 40 MG/0.4 ML SYRINGE SQ SCH (08:11)
[2023-01-24] MEDS: GENTAMICIN SULFATE IRR SCH ×2 (12:00→22:26)
[2023-01-24] MEDS: SODIUM CHLORIDE IRRIG IRR SCH ×2 (12:00→22:26)
[2023-01-24] MEDS: TRIAMTERENE/HYDROCHLOROTHIAZID 1 CAP CAPSULE PO SCH ×2 (12:00→20:07)
[2023-01-24] MEDS: CLINDAMYCIN IRR SCH ×2 (12:00→22:26)
[2023-01-25] MEDS: oxyCODONE IR 5 MG TABLET PO SCH ×8 (03:39→23:04)
[2023-01-25] MEDS: BACLOFEN 10 MG TABLET PO SCH ×6 (03:40→23:04)
[2023-01-25] MEDS: PIPERACILLIN SODIUM/TAZOBACTAM 3.375 GM in DEXTROSE 5% IN WATER 50 ML IV SCH ×4 (05:57→23:05)
[2023-01-25] MEDS: METOCLOPRAMIDE 10 MG TABLET PO SCH ×4 (05:57→23:04)
[2023-01-25] MEDS: 0.9 % SODIUM CHLORIDE 10 ML SYRINGE IV SCH ×3 (05:58→22:22)
[2023-01-25] MEDS: ACETAMINOPHEN 1,000 MG/100 ML BAG IV SCH ×4 (06:37→21:33)
[2023-01-25] MEDS: HYDROmorphone 1 MG/ML SYRINGE IV PRN ×3 (07:44→22:25)
[2023-01-25] MEDS: LEVOTHYROXINE 100 MCG TABLET PO SCH (07:47)
[2023-01-25] MEDS: PANTOPRAZOLE 40 MG TABLET PO SCH ×2 (07:47→17:47)
[2023-01-25] MEDS: METHOCARBAMOL 1,000 MG/10 ML VIAL IV PRN (07:49)
[2023-01-25] MEDS: GABAPENTIN 300 MG CAPSULE PO SCH (07:59)
[2023-01-25] MEDS: busPIRone 5 MG TABLET PO SCH ×2 (07:59→21:33)
[2023-01-25] MEDS: ENOXAPARIN 40 MG/0.4 ML SYRINGE SQ SCH (08:00)
[2023-01-25] MEDS: SULFAMETHOXAZOLE/TRIMETHOPRIM 1 TABLET PO SCH ×2 (12:30→21:33)
[2023-01-25] MEDS: TAMSULOSIN 0.4 MG CAPSULE PO SCH ×2 (12:31→21:33)
[2023-01-25] MEDS: SODIUM CHLORIDE IRRIG IRR SCH ×2 (12:31→22:22)
[2023-01-25] MEDS: GENTAMICIN SULFATE IRR SCH ×2 (12:31→22:22)
[2023-01-25] MEDS: CLINDAMYCIN IRR SCH ×2 (12:31→22:22)
[2023-01-25] MEDS: TRIAMTERENE/HYDROCHLOROTHIAZID 1 CAP CAPSULE PO SCH ×2 (12:31→21:33)
[2023-01-25] MEDS: 0.9 % SODIUM CHLORIDE 1,000 ML IV SCH ×2 (12:33→23:44)
[2023-01-25] MEDS: diphenhydrAMINE 50 MG/ML VIAL IV SCH (23:09)
[2023-01-26] MEDS: oxyCODONE IR 5 MG TABLET PO SCH ×9 (02:43→23:28)
[2023-01-26] MEDS: HYDROmorphone 1 MG/ML SYRINGE IV PRN (03:52)
[2023-01-26] MEDS: BACLOFEN 10 MG TABLET PO SCH ×6 (03:52→23:28)
[2023-01-26] MEDS: ACETAMINOPHEN 1,000 MG/100 ML BAG IV SCH ×3 (05:27→22:51)
[2023-01-26] MEDS: METOCLOPRAMIDE 10 MG TABLET PO SCH ×4 (05:31→23:28)
[2023-01-26] MEDS: 0.9 % SODIUM CHLORIDE 10 ML SYRINGE IV SCH ×3 (05:38→22:54)
[2023-01-26] MEDS: 0.9 % SODIUM CHLORIDE 1,000 ML IV SCH ×2 (05:43→21:22)
[2023-01-26] MEDS: PIPERACILLIN SODIUM/TAZOBACTAM 3.375 GM in DEXTROSE 5% IN WATER 50 ML IV SCH ×4 (06:22→23:29)
[2023-01-26] MEDS: LEVOTHYROXINE 100 MCG TABLET PO SCH (07:07)
[2023-01-26] MEDS: PANTOPRAZOLE 40 MG TABLET PO SCH ×2 (07:08→17:16)
[2023-01-26] MEDS: SULFAMETHOXAZOLE/TRIMETHOPRIM 1 TABLET PO SCH ×2 (09:54→21:20)
[2023-01-26] MEDS: GABAPENTIN 300 MG CAPSULE PO SCH (09:55)
[2023-01-26] MEDS: TAMSULOSIN 0.4 MG CAPSULE PO SCH ×2 (09:55→21:20)
[2023-01-26] MEDS: busPIRone 5 MG TABLET PO SCH ×2 (09:55→21:20)
[2023-01-26] MEDS: ENOXAPARIN 40 MG/0.4 ML SYRINGE SQ SCH (09:56)
[2023-01-26] MEDS: TRIAMTERENE/HYDROCHLOROTHIAZID 1 CAP CAPSULE PO SCH ×2 (10:37→22:53)
[2023-01-26] MEDS: CLINDAMYCIN IRR SCH ×2 (11:08→22:53)
[2023-01-26] MEDS: SODIUM CHLORIDE IRRIG IRR SCH ×2 (11:08→22:53)
[2023-01-26] MEDS: GENTAMICIN SULFATE IRR SCH ×2 (11:08→22:53)
[2023-01-26] MEDS: diphenhydrAMINE 50 MG/ML VIAL IV SCH (21:21)
[2023-01-27] MEDS: METHOCARBAMOL 1,000 MG/10 ML VIAL IV PRN ×3 (01:54→17:28)
[2023-01-27] MEDS: BACLOFEN 10 MG TABLET PO SCH ×6 (06:34→23:37)
[2023-01-27] MEDS: oxyCODONE IR 5 MG TABLET PO SCH ×8 (06:35→23:37)
[2023-01-27] MEDS: METOCLOPRAMIDE 10 MG TABLET PO SCH ×4 (06:36→22:49)
[2023-01-27] MEDS: 0.9 % SODIUM CHLORIDE 10 ML SYRINGE IV SCH ×3 (06:36→20:25)
[2023-01-27] MEDS: PIPERACILLIN SODIUM/TAZOBACTAM 3.375 GM in DEXTROSE 5% IN WATER 50 ML IV SCH ×3 (06:36→18:23)
[2023-01-27] MEDS: LEVOTHYROXINE 100 MCG TABLET PO SCH (07:52)
[2023-01-27] MEDS: PANTOPRAZOLE 40 MG TABLET PO SCH ×2 (07:55→17:27)
[2023-01-27] MEDS: ACETAMINOPHEN 1,000 MG/100 ML BAG IV SCH ×3 (07:57→22:49)
[2023-01-27] MEDS: 0.9 % SODIUM CHLORIDE 1,000 ML IV SCH ×2 (08:53→13:45)
[2023-01-27] MEDS: HYDROmorphone 1 MG/ML SYRINGE IV PRN (11:56)
[2023-01-27] MEDS: GABAPENTIN 300 MG CAPSULE PO SCH (11:58)
[2023-01-27] MEDS: SULFAMETHOXAZOLE/TRIMETHOPRIM 1 TABLET PO SCH ×2 (11:58→20:40)
[2023-01-27] MEDS: CLINDAMYCIN IRR SCH ×2 (11:59→23:37)
[2023-01-27] MEDS: TRIAMTERENE/HYDROCHLOROTHIAZID 1 CAP CAPSULE PO SCH ×2 (11:59→20:41)
[2023-01-27] MEDS: GENTAMICIN SULFATE IRR SCH ×2 (11:59→23:37)
[2023-01-27] MEDS: SODIUM CHLORIDE IRRIG IRR SCH ×2 (11:59→23:37)
[2023-01-27] MEDS: TAMSULOSIN 0.4 MG CAPSULE PO SCH ×2 (11:59→20:41)
[2023-01-27] MEDS: busPIRone 5 MG TABLET PO SCH ×2 (11:59→20:39)
[2023-01-27] MEDS: ENOXAPARIN 40 MG/0.4 ML SYRINGE SQ SCH (12:00)
[2023-01-27] MEDS: diphenhydrAMINE 50 MG/ML VIAL IV SCH (20:40)
[2023-01-28] MEDS: PIPERACILLIN SODIUM/TAZOBACTAM 3.375 GM in DEXTROSE 5% IN WATER 50 ML IV SCH ×4 (00:14→18:01)
[2023-01-28] MEDS: BACLOFEN 10 MG TABLET PO SCH ×6 (04:28→23:49)
[2023-01-28] MEDS: oxyCODONE IR 5 MG TABLET PO SCH ×7 (04:28→21:17)
[2023-01-28] MEDS: 0.9 % SODIUM CHLORIDE 10 ML SYRINGE IV SCH ×3 (05:17→21:24)
[2023-01-28] MEDS: METOCLOPRAMIDE 10 MG TABLET PO SCH ×4 (05:18→23:49)
[2023-01-28] MEDS: 0.9 % SODIUM CHLORIDE 1,000 ML IV SCH ×2 (05:21→21:16)
[2023-01-28] MEDS: ACETAMINOPHEN 1,000 MG/100 ML BAG IV SCH ×3 (05:53→21:16)
[2023-01-28] MEDS: PANTOPRAZOLE 40 MG TABLET PO SCH ×2 (07:37→18:01)
[2023-01-28] MEDS: LEVOTHYROXINE 100 MCG TABLET PO SCH (07:37)
[2023-01-28] MEDS: SULFAMETHOXAZOLE/TRIMETHOPRIM 1 TABLET PO SCH ×2 (09:17→21:17)
[2023-01-28] MEDS: GABAPENTIN 300 MG CAPSULE PO SCH (09:17)
[2023-01-28] MEDS: busPIRone 5 MG TABLET PO SCH ×2 (09:17→21:17)
[2023-01-28] MEDS: TAMSULOSIN 0.4 MG CAPSULE PO SCH ×2 (09:17→21:17)
[2023-01-28] MEDS: ENOXAPARIN 40 MG/0.4 ML SYRINGE SQ SCH (09:18)
[2023-01-28] MEDS: GENTAMICIN SULFATE IRR SCH ×2 (09:18→23:49)
[2023-01-28] MEDS: CLINDAMYCIN IRR SCH ×2 (09:18→23:49)
[2023-01-28] MEDS: SODIUM CHLORIDE IRRIG IRR SCH ×2 (09:18→23:49)
[2023-01-28] MEDS: TRIAMTERENE/HYDROCHLOROTHIAZID 1 CAP CAPSULE PO SCH ×3 (09:19→21:17)
[2023-01-28] MEDS: diphenhydrAMINE 50 MG/ML VIAL IV SCH (22:05)
[2023-01-28] MEDS: HYDROmorphone 1 MG/ML SYRINGE IV PRN (22:14)
[2023-01-29] MEDS: oxyCODONE IR 5 MG TABLET PO SCH ×8 (00:29→22:40)
[2023-01-29] MEDS: diphenhydrAMINE 50 MG/ML VIAL IV SCH (00:29)
[2023-01-29] MEDS: PIPERACILLIN SODIUM/TAZOBACTAM 3.375 GM in DEXTROSE 5% IN WATER 50 ML IV SCH ×4 (00:31→18:23)
[2023-01-29] MEDS: METHOCARBAMOL 1,000 MG/10 ML VIAL IV PRN ×2 (02:10→14:48)
[2023-01-29] MEDS: BACLOFEN 10 MG TABLET PO SCH ×6 (03:30→22:40)
[2023-01-29] MEDS: ACETAMINOPHEN 1,000 MG/100 ML BAG IV SCH ×3 (05:14→22:40)
[2023-01-29] MEDS: 0.9 % SODIUM CHLORIDE 10 ML SYRINGE IV SCH ×3 (05:14→22:42)
[2023-01-29] MEDS: METOCLOPRAMIDE 10 MG TABLET PO SCH ×4 (05:50→22:40)
[2023-01-29] MEDS: LEVOTHYROXINE 100 MCG TABLET PO SCH (07:11)
[2023-01-29] MEDS: PANTOPRAZOLE 40 MG TABLET PO SCH ×2 (07:11→18:21)
[2023-01-29] MEDS: SULFAMETHOXAZOLE/TRIMETHOPRIM 1 TABLET PO SCH ×2 (09:51→21:30)
[2023-01-29] MEDS: TAMSULOSIN 0.4 MG CAPSULE PO SCH ×2 (09:51→21:30)
[2023-01-29] MEDS: 0.9 % SODIUM CHLORIDE 1,000 ML IV SCH ×2 (09:51→13:02)
[2023-01-29] MEDS: GABAPENTIN 300 MG CAPSULE PO SCH (09:51)
[2023-01-29] MEDS: busPIRone 5 MG TABLET PO SCH ×2 (09:53→21:30)
[2023-01-29] MEDS: ENOXAPARIN 40 MG/0.4 ML SYRINGE SQ SCH (09:53)
[2023-01-29] MEDS: TRIAMTERENE/HYDROCHLOROTHIAZID 1 CAP CAPSULE PO SCH ×2 (09:53→21:30)
[2023-01-29] MEDS: HYDROmorphone 1 MG/ML SYRINGE IV PRN ×2 (11:44→15:51)
[2023-01-29 16:19] LABS: ALT/SGPT 16 U/L (<40); AST/SGOT 21 U/L (<40); Albumin 2.8 gm/dL (3.2-5.2); Alkaline Phosphatase 87 U/L (39-117); Bilirubin,Direct < 0.2 mg/dL (0-0.3); Bilirubin,Total < 0.2 mg/dL (0.1-1.0); Blood Urea Nitrogen 21 mg/dL (8-23); Calcium 8.3 mg/dL (8.6-10.4); Carbon Dioxide 18 mmol/L (22-30); Chloride 100 mmol/L (96-108); Globulin 2.9 gm/dL (2.2-3.7); Glomerular Filtration Rate 88; Glucose 122 mg/dL (70-105); Lactate Dehydrogenase 249 U/L (135-225); Phosphorous 3.3 mg/dL (2.5-4.5); Triglycerides 327 mg/dL (<150); Uric Acid 2.7 mg/dL (2.5-8.0)
[2023-01-29] MEDS: CLINDAMYCIN IRR SCH (17:00)
[2023-01-29] MEDS: GENTAMICIN SULFATE IRR SCH (17:00)
[2023-01-29] MEDS: SODIUM CHLORIDE IRRIG IRR SCH (17:00)
[2023-01-29] MEDS ORDERED: BACLOFEN 10 MG TABLET PO SCH (18:00)
[2023-01-30] MEDS: diphenhydrAMINE 50 MG/ML VIAL IV SCH ×2 (00:26→21:07)
[2023-01-30] MEDS: PIPERACILLIN SODIUM/TAZOBACTAM 3.375 GM in DEXTROSE 5% IN WATER 50 ML IV SCH ×5 (00:56→23:36)
[2023-01-30] MEDS: BACLOFEN 10 MG TABLET PO SCH ×6 (02:51→21:08)
[2023-01-30] MEDS: oxyCODONE IR 5 MG TABLET PO SCH ×6 (02:51→21:09)
[2023-01-30] MEDS: 0.9 % SODIUM CHLORIDE 1,000 ML IV SCH ×2 (02:56→11:27)
[2023-01-30] MEDS: GENTAMICIN SULFATE IRR SCH ×3 (03:45→21:22)
[2023-01-30] MEDS: SODIUM CHLORIDE IRRIG IRR SCH ×3 (03:45→21:22)
[2023-01-30] MEDS: CLINDAMYCIN IRR SCH ×3 (03:45→21:22)
[2023-01-30] MEDS: 0.9 % SODIUM CHLORIDE 10 ML SYRINGE IV SCH ×3 (05:18→20:32)
[2023-01-30] MEDS: METOCLOPRAMIDE 10 MG TABLET PO SCH ×4 (05:18→22:48)
[2023-01-30] MEDS: METHOCARBAMOL 1,000 MG/10 ML VIAL IV PRN ×3 (05:24→23:50)
[2023-01-30] MEDS: ACETAMINOPHEN 1,000 MG/100 ML BAG IV SCH ×3 (06:31→21:10)
[2023-01-30] MEDS: PANTOPRAZOLE 40 MG TABLET PO SCH ×2 (07:24→17:52)
[2023-01-30] MEDS: LEVOTHYROXINE 100 MCG TABLET PO SCH (07:24)
[2023-01-30 07:38] LABS: Basophils # (Auto) 0.06 K/mcL (0.00-0.30); Basophils % (Auto) 0.7 % (0.0-2.0); Eosinophils # (Auto) 0.74 K/mcL (0.00-0.70); Eosinophils % (Auto) 8.5 % (0.0-7.0); Hemoglobin 7.9 g/dL (13.7-17.5); Lymphocytes # (Auto) 1.06 K/mcL (1.50-4.80); Lymphocytes % (Auto) 12.1 % (15.5-49.0); Mean Corpuscular HGB Conc 29.3 g/dL (31.0-36.0); Monocytes # (Auto) 0.66 K/mcL (0.10-0.90); Monocytes % (Auto) 7.6 % (1.0-12.0); Platelet Count 436 K/mcL (140-440); RBC 3.14 M/mcL (4.63-6.08); Red Cell Distribution Width 18.8 % (11.5-14.5); WBC 8.7 K/mcL (4.5-11.0)
[2023-01-30] MEDS: TRIAMTERENE/HYDROCHLOROTHIAZID 1 CAP CAPSULE PO SCH ×2 (09:56→21:07)
[2023-01-30] MEDS: SULFAMETHOXAZOLE/TRIMETHOPRIM 1 TABLET PO SCH ×2 (09:56→21:08)
[2023-01-30] MEDS: TAMSULOSIN 0.4 MG CAPSULE PO SCH ×2 (09:56→21:09)
[2023-01-30] MEDS: GABAPENTIN 300 MG CAPSULE PO SCH (09:56)
[2023-01-30] MEDS: busPIRone 5 MG TABLET PO SCH ×2 (09:56→21:09)
[2023-01-30] MEDS: ENOXAPARIN 40 MG/0.4 ML SYRINGE SQ SCH (09:56)
[2023-01-30] MEDS: FERROUS SULFATE 325 MG TABLET PO SCH (17:52)
[2023-01-31] MEDS: oxyCODONE IR 5 MG TABLET PO SCH ×6 (02:00→21:04)
[2023-01-31] MEDS: BACLOFEN 10 MG TABLET PO SCH ×6 (02:00→21:04)
[2023-01-31] MEDS: HYDROmorphone 1 MG/ML SYRINGE IV PRN (04:33)
[2023-01-31] MEDS: METOCLOPRAMIDE 10 MG TABLET PO SCH ×2 (04:37→11:28)
[2023-01-31] MEDS: 0.9 % SODIUM CHLORIDE 10 ML SYRINGE IV SCH ×2 (05:23→15:24)
[2023-01-31] MEDS: PIPERACILLIN SODIUM/TAZOBACTAM 3.375 GM in DEXTROSE 5% IN WATER 50 ML IV SCH ×2 (05:29→13:05)
[2023-01-31] MEDS: 0.9 % SODIUM CHLORIDE 1,000 ML IV SCH ×2 (05:29→15:22)
[2023-01-31] MEDS: ACETAMINOPHEN 1,000 MG/100 ML BAG IV SCH ×2 (05:43→15:24)
[2023-01-31] MEDS: PANTOPRAZOLE 40 MG TABLET PO SCH ×2 (07:52→17:48)
[2023-01-31] MEDS: LEVOTHYROXINE 100 MCG TABLET PO SCH (07:52)
[2023-01-31] MEDS: GABAPENTIN 300 MG CAPSULE PO SCH (09:07)
[2023-01-31] MEDS: SULFAMETHOXAZOLE/TRIMETHOPRIM 1 TABLET PO SCH ×2 (09:08→21:13)
[2023-01-31] MEDS: busPIRone 5 MG TABLET PO SCH ×2 (09:08→21:04)
[2023-01-31] MEDS: TAMSULOSIN 0.4 MG CAPSULE PO SCH ×2 (09:08→21:04)
[2023-01-31] MEDS: FERROUS SULFATE 325 MG TABLET PO SCH ×2 (09:09→17:48)
[2023-01-31] MEDS: TRIAMTERENE/HYDROCHLOROTHIAZID 1 CAP CAPSULE PO SCH ×2 (09:09→21:13)
[2023-01-31] MEDS: ENOXAPARIN 40 MG/0.4 ML SYRINGE SQ SCH (09:11)
[2023-01-31] MEDS: SODIUM CHLORIDE IRRIG IRR SCH ×2 (11:59→21:17)
[2023-01-31] MEDS: GENTAMICIN SULFATE IRR SCH ×2 (11:59→21:17)
[2023-01-31] MEDS: CLINDAMYCIN IRR SCH ×2 (11:59→21:17)
[2023-01-31] MEDS: METHOCARBAMOL 500 MG TABLET PO SCH ×2 (17:48→23:35)
[2023-01-31] MEDS: CIPROFLOXACIN 500 MG TABLET PO SCH (21:02)
[2023-02-01] MEDS: oxyCODONE IR 5 MG TABLET PO SCH ×3 (02:45→09:57)
[2023-02-01] MEDS: BACLOFEN 10 MG TABLET PO SCH ×3 (02:45→09:57)
[2023-02-01] MEDS: METHOCARBAMOL 500 MG TABLET PO SCH (05:56)
[2023-02-01] MEDS: LEVOTHYROXINE 100 MCG TABLET PO SCH (07:43)
[2023-02-01] MEDS: PANTOPRAZOLE 40 MG TABLET PO SCH (07:43)
[2023-02-01] MEDS: ENOXAPARIN 40 MG/0.4 ML SYRINGE SQ SCH (09:05)
[2023-02-01] MEDS: CIPROFLOXACIN 500 MG TABLET PO SCH (09:06)
[2023-02-01] MEDS: SULFAMETHOXAZOLE/TRIMETHOPRIM 1 TABLET PO SCH (09:06)
[2023-02-01] MEDS: TRIAMTERENE/HYDROCHLOROTHIAZID 1 CAP CAPSULE PO SCH (09:06)
[2023-02-01] MEDS: TAMSULOSIN 0.4 MG CAPSULE PO SCH (09:06)
[2023-02-01] MEDS: GABAPENTIN 300 MG CAPSULE PO SCH (09:06)
[2023-02-01] MEDS: busPIRone 5 MG TABLET PO SCH (09:06)
[2023-02-01] MEDS: FERROUS SULFATE 325 MG TABLET PO SCH (09:06)
[2023-02-01] MEDS: SODIUM CHLORIDE IRRIG IRR SCH (09:07)
[2023-02-01] MEDS: CLINDAMYCIN IRR SCH (09:07)
[2023-02-01] MEDS: GENTAMICIN SULFATE IRR SCH (09:07)
== END 2023-02-01 10:30 | DRG 579 ==
LOC: MEDSUR 09:15
PROVIDERS: ADMIT Family Medicine Adult Medicine; ATTEND Family Medicine Adult Medicine